=== PATIENT | male | born 1940 | race Caucasian/White ===

== ENCOUNTER → 2016-06-12 | Outpatient (CLI) | payer MEDICARE ==
[2016-06-12 10:53] LABS: Aty Lym Flag Marked; CH 30.4; CHCM 32.3; HCT 45.6 % (39.0-53.0); HDW 2.56; MCHC 32.8 g/dL (31.0-37.0); MCV 94.7 fL (80.0-100.0); MPO Flag Slight; Mean Platelet Volume 8.4; RBC 4.82 m/uL (4.30-5.90); RDW 13.9 % (11.5-15.5); WBC 5.8 k/uL (3.8-10.6); WBC (Perox) 5.63
[2016-06-12 11:22] LABS: Calcium 8.6 mg/dL (8.4-10.2); Magnesium 2.4 mg/dL (1.6-2.3); Phosphorous 3.7 mg/dL (2.5-4.5); Potassium 4.6 mmol/L (3.5-5.1); Uric Acid 6.6 mg/dL (3.5-8.5)
[2016-06-12 11:31] LABS: % Iron Saturation 26.2 % (20-50)
[2016-06-12 12:37] LABS: Appearance,Urine Clear (Clear); Bilirubin,Urine Negative (Negative); Glucose,Urine (UA) Negative (Negative); Ketones,Urine Negative (Negative); Leukocyte Esterase,Urine Small (Negative); Mucus,Urine Rare /hpf; Nitrite,Urine Negative (Negative); PH, Urine 5.5 (5.0-8.0); Particle Count 794; Protein,Urine Negative (Negative); RBC,Urine 3 /hpf (0-5); Specific Gravity,Urine 1.011 (1.001-1.035); Squamous Epithelial Cell,Urine <1 /hpf (0-4); UA Billing (MACRO vs. MICRO) MICRO; Urobilinogen,Urine <2.0 mg/dL (<2.0); WBC,Urine 19 /hpf (0-5)
[2016-06-12 14:44] LABS: Add Differential Manual Differential
[2016-06-12 14:46] LABS: Manual Review Performed; Nucleated Red Blood Cells 0 /100 WBC (0-0); Total Cells Counted 100
[2016-06-12 14:48] LABS: Toxic Granulation Present
== END | disposition home or self-care (01) ==
LOC: LABWHC1 10:15
PROVIDERS: ATTEND Internal Medicine Nephrology
DX: N18.4 Chronic kidney disease, stage 4 (severe) (principal); D64.9 Anemia, unspecified; E55.9 Vitamin D deficiency, unspecified; N25.81 Secondary hyperparathyroidism of renal origin; M10.9 Gout, unspecified; N39.0 Urinary tract infection, site not specified
CPT/HCPCS: 36415; 80048; 81001; 82306; 82728; 83540; 83550; 83735; 83970; 84100; 84550; 85025

== ENCOUNTER → 2016-09-19 | Outpatient (CLI) | payer MEDICARE ==
[2016-09-19 11:08] LABS: Appearance,Urine Clear (Clear); Bilirubin,Urine Negative (Negative); Glucose,Urine (UA) Negative (Negative); Ketones,Urine Negative (Negative); Leukocyte Esterase,Urine Small (Negative); Mucus,Urine Rare /hpf; Nitrite,Urine Negative (Negative); Particle Count 636; Protein,Urine Negative (Negative); RBC,Urine 1 /hpf (0-5); Specific Gravity,Urine 1.007 (1.001-1.035); UA Billing (MACRO vs. MICRO) MICRO; Urobilinogen,Urine <2.0 mg/dL (<2.0); WBC,Urine 8 /hpf (0-5)
[2016-09-19 11:09] LABS: Aty Lym Flag Marked; CH 30.7; CHCM 32.4; HCT 46.8 % (39.0-53.0); HDW 2.52; HGB 14.8 gm/dL (13.0-17.5); MCH 30.2 pg (25.0-35.0); MCHC 31.7 g/dL (31.0-37.0); MCV 95.3 fL (80.0-100.0); MPO Flag Slight; RBC 4.91 m/uL (4.30-5.90); RDW 14.6 % (11.5-15.5); WBC 5.5 k/uL (3.8-10.6); WBC (Perox) 5.29
[2016-09-19 11:19] LABS: Calcium 8.5 mg/dL (8.4-10.2); Magnesium 2.3 mg/dL (1.6-2.3); Phosphorous 4.3 mg/dL (2.5-4.5); Potassium 4.4 mmol/L (3.5-5.1); Uric Acid 6.8 mg/dL (3.5-8.5)
[2016-09-19 12:21] LABS: Add Differential Manual Differential
[2016-09-19 12:23] LABS: Manual Review Performed; Nucleated Red Blood Cells 0 /100 WBC (0-0); Total Cells Counted 100
[2016-09-19 12:24] LABS: RBC Morphology Normal
== END | disposition home or self-care (01) ==
LOC: LABWHC1 10:33
PROVIDERS: ATTEND Nurse Practitioner Family
DX: N25.81 Secondary hyperparathyroidism of renal origin (principal); N18.4 Chronic kidney disease, stage 4 (severe); N39.0 Urinary tract infection, site not specified; D64.9 Anemia, unspecified; M10.9 Gout, unspecified
CPT/HCPCS: 36415; 80048; 81001; 82306; 82728; 83540; 83550; 83735; 83970; 84100; 84550; 85025

== ENCOUNTER → 2016-09-23 | Outpatient (CLI) | payer MEDICARE ==
[2016-09-23 11:07] LABS: Calcium 8.5 mg/dL (8.4-10.2); Potassium 4.7 mmol/L (3.5-5.1)
== END | disposition home or self-care (01) ==
LOC: LABWHC1 09:26
PROVIDERS: ATTEND Nurse Practitioner Family
DX: N18.4 Chronic kidney disease, stage 4 (severe) (principal)
CPT/HCPCS: 36415; 80048

== ENCOUNTER → 2017-01-06 | Outpatient (CLI) | payer MEDICARE ==
[2017-01-06 08:05] LABS: Aty Lym Flag Marked; CH 30.7; CHCM 31.2; HCT 45.2 % (39.0-53.0); HDW 2.72; HGB 14.5 gm/dL (13.0-17.5); Hypochromasia Slight; MCH 31.7 pg (25.0-35.0); MCV 99.1 fL (80.0-100.0); MPO Flag Slight; Mean Platelet Volume 8.1; RBC 4.56 m/uL (4.30-5.90); RDW 14.7 % (11.5-15.5); WBC 5.8 k/uL (3.8-10.6); WBC (Perox) 5.85
[2017-01-06 08:21] LABS: Appearance,Urine Clear (Clear); Bacteria,Urine Rare /hpf; Bilirubin,Urine Negative (Negative); Glucose,Urine (UA) Negative (Negative); Ketones,Urine Negative (Negative); Leukocyte Esterase,Urine Moderate (Negative); Mucus,Urine Rare /hpf; Nitrite,Urine Negative (Negative); PH, Urine 5.5 (5.0-8.0); Particle Count 604; Protein,Urine Negative (Negative); RBC,Urine 7 /hpf (0-5); UA Billing (MACRO vs. MICRO) MICRO; Urobilinogen,Urine <2.0 mg/dL (<2.0); WBC,Urine 13 /hpf (0-5)
[2017-01-06 08:37] LABS: Calcium 8.4 mg/dL (8.4-10.2); Phosphorus 3.1 mg/dL (2.5-4.5); Potassium 4.5 mmol/L (3.5-5.1); Uric Acid 5.8 mg/dL (3.5-8.5)
[2017-01-06 08:38] LABS: Add Differential Manual Differential
[2017-01-06 08:39] LABS: Nucleated Red Blood Cells 0 /100 WBC (0-0); Total Cells Counted 100
[2017-01-06 15:06] LABS: Iron Saturation 31.84 (15.00-50.00)
== END | disposition home or self-care (01) ==
LOC: LABWHC1 07:11
PROVIDERS: ATTEND Nurse Practitioner Family
DX: N18.4 Chronic kidney disease, stage 4 (severe) (principal); D64.9 Anemia, unspecified; N25.81 Secondary hyperparathyroidism of renal origin; M10.9 Gout, unspecified; N39.0 Urinary tract infection, site not specified
CPT/HCPCS: 36415; 80048; 81001; 82306; 82728; 83540; 83550; 83735; 83970; 84100; 84550; 85025; 85610

== ENCOUNTER → 2017-04-28 | Outpatient (CLI) | payer MEDICARE ==
[2017-04-28 11:20] LABS: Appearance,Urine Clear (Clear); Bilirubin,Urine Negative (Negative); Blood,Urine Trace (Negative); Color,Urine Yellow; Glucose,Urine (UA) Negative (Negative); Ketones,Urine Negative (Negative); Leukocyte Esterase,Urine Small (Negative); Nitrite,Urine Negative (Negative); PH, Urine 5.5 (5.0-8.0); Protein,Urine Negative (Negative); RBC,Urine 3 /hpf (0-5); Specific Gravity,Urine 1.011 (1.001-1.035); Squamous Epithelial Cell,Urine 1 /hpf (0-4); Urobilinogen,Urine <2.0 mg/dL (<2.0); WBC,Urine 12 /hpf (0-5)
[2017-04-28 11:29] LABS: Albumin 3.5 g/dL (3.5-5.0); Calcium 8.6 mg/dL (8.4-10.2); Magnesium 2.4 mg/dL (1.6-2.3); Potassium 4.9 mmol/L (3.5-5.1); Uric Acid 6.5 mg/dL (3.5-8.5)
[2017-04-28 11:30] LABS: HCT 48.9 % (39.0-53.0); HGB 15.3 gm/dL (13.0-17.5); MCH 30.2 pg (25.0-35.0); MCHC 31.2 g/dL (31.0-37.0); MCV 96.7 fL (80.0-100.0); Platelet Count 127 k/uL (150-450); RBC 5.06 m/uL (4.30-5.90); RDW 13.6 % (11.5-15.5); WBC 5.3 k/uL (3.8-10.6)
[2017-04-28 12:07] LABS: Eosinophils # (M) 0.11 k/uL (0-0.7); Lymphocytes # (M) 0.85 k/uL (1.0-4.8); Monocytes # (M) 0.42 k/uL (0-1.0); Neutrophils # (M) 3.92 k/uL (1.3-7.7); Neutrophils % (M) 74 %; Nucleated Red Blood Cells 0 /100 WBC (0-0); Total Cells Counted 100
[2017-04-28 15:09] LABS: Iron Saturation 29.73 (15.00-50.00)
[2017-04-28 19:45] LABS: Parathyroid Hormone Intact 137.5 pg/mL (14.0-72.0)
== END | disposition home or self-care (01) ==
LOC: LABWHC1 10:46
PROVIDERS: ATTEND Internal Medicine Nephrology
DX: N39.0 Urinary tract infection, site not specified (principal); M10.9 Gout, unspecified; D64.9 Anemia, unspecified; N25.81 Secondary hyperparathyroidism of renal origin; N18.4 Chronic kidney disease, stage 4 (severe)
CPT/HCPCS: 36415; 80048; 81001; 82040; 82306; 82728; 83540; 83550; 83735; 83970; 84550; 85025

== ENCOUNTER → 2017-05-13 | Outpatient (CLI) | payer MEDICARE ==
[2017-05-13 09:44] LABS: Calcium 8.6 mg/dL (8.4-10.2); Potassium 4.5 mmol/L (3.5-5.1)
== END | disposition home or self-care (01) ==
LOC: LABWHC1 08:54
PROVIDERS: ATTEND Nurse Practitioner Family
DX: N18.4 Chronic kidney disease, stage 4 (severe) (principal)
CPT/HCPCS: 36415; 80048

== ENCOUNTER → 2017-07-24 | Outpatient (CLI) | payer MEDICARE ==
[2017-07-24 13:06] LABS: HGB 14.6 gm/dL (13.0-17.5); MCH 30.1 pg (25.0-35.0); MCHC 32.5 g/dL (31.0-37.0); MCV 92.4 fL (80.0-100.0); Mean Platelet Volume 8.2; Platelet Count 132 k/uL (150-450); RBC 4.87 m/uL (4.30-5.90); RDW 14.3 % (11.5-15.5); WBC 5.4 k/uL (3.8-10.6)
[2017-07-24 13:09] LABS: Albumin 3.5 g/dL (3.5-5.0); Calcium 8.6 mg/dL (8.4-10.2); Magnesium 2.2 mg/dL (1.6-2.3); Potassium 4.9 mmol/L (3.5-5.1); Uric Acid 6.3 mg/dL (3.5-8.5)
[2017-07-24 13:37] LABS: Appearance,Urine Clear (Clear); Bilirubin,Urine Negative (Negative); Blood,Urine Negative (Negative); Color,Urine Light Yellow; Glucose,Urine (UA) Negative (Negative); Hyaline Casts,Urine 3 /lpf (0-2); Ketones,Urine Negative (Negative); Leukocyte Esterase,Urine Trace (Negative); Mucus,Urine Rare /hpf; Nitrite,Urine Negative (Negative); Protein,Urine Negative (Negative); RBC,Urine 1 /hpf (0-5); Urobilinogen,Urine <2.0 mg/dL (<2.0); WBC,Urine 6 /hpf (0-5)
[2017-07-24 14:31] LABS: Eosinophils # (M) 0.11 k/uL (0-0.7); Lymphocytes # (M) 0.81 k/uL (1.0-4.8); Monocytes # (M) 0.59 k/uL (0-1.0); Neutrophils # (M) 3.89 k/uL (1.3-7.7); Neutrophils % (M) 72 %; Nucleated Red Blood Cells 0 /100 WBC (0-0); Total Cells Counted 100
[2017-07-24 14:32] LABS: Ovalocytes Present
[2017-07-24 18:42] LABS: Iron Saturation 28.28 (15.00-50.00)
[2017-07-24 20:47] LABS: Parathyroid Hormone Intact 128.9 pg/mL (14.0-72.0)
== END | disposition home or self-care (01) ==
LOC: LAB 11:54
PROVIDERS: ATTEND Nurse Practitioner Family
DX: N25.81 Secondary hyperparathyroidism of renal origin (principal); N18.4 Chronic kidney disease, stage 4 (severe); E55.9 Vitamin D deficiency, unspecified; N39.0 Urinary tract infection, site not specified
CPT/HCPCS: 36415; 80048; 81001; 82040; 82728; 83540; 83550; 83735; 83970; 84550; 85025

== ENCOUNTER → 2017-09-04 | Outpatient (CLI) | payer MEDICARE ==
--- NOTE | 2017-09-04 19:59 | ECHOF ---
Referral Reason:I50.9 Congestive Heart Failure MEASUREMENTS -------- HEIGHT: 180.3 cm WEIGHT: 106.6 kg BP: IVSd: 1.1 cm (0.6 - 1.1) LVIDd: 5.8 cm (3.9 - 5.3) LVPWd: 1.4 cm (0.6 - 1.1) IVSs: 1.3 cm LVIDs: 5.1 cm LVPWs: 0.9 cm LAESV Index (A-L): 32.28 ml/m MV E Jono: 1.25 m/s MV DecT: 198 ms MV A Jono: 1.55 m/s MV E/A Ratio: 0.81 AV maxP.95 mmHg AV meanP.98 mmHg RAP: 5.00 mmHg RVSP: 23.73 mmHg FINDINGS -------- Pacerwire seen in RV and RA. This was a technically difficult study with suboptimal views. The left ventricular size is normal. Left ventricular wall thickness is normal. There is severe g lobal hypokinesis of LV . Overall left ventricular systolic function is severely impaired with, an EF between 20 - 25 %. The right ventricle is normal in size and function. LA is midly dilated 29-33ml/m2. The right atrium is normal in size. Lumason used There is mild aortic valve sclerosis. Peak/mean gradient across the Aortic Valve is 9.95mmHg / 5.98 mmHg. Mild mitral annular calcification present. Mild mitral regurgitation is present. The peak and me an MV gradients are 5.50mmHg 2.10mmHg as measured by doppler. Mild tricuspid regurgitation present. The right ventricular systolic pressure, as measured by Doppl er, is 23.73mmHg. The pulmonic valve was not well visualized. There is no pulmonic regurgitation present. The aortic root size is normal. There is no pericardial effusion. CONCLUSIONS -------- 1. Pacerwire seen in RV and RA. 2. This was a technically difficult study with suboptimal views. 3. The left ventricular size is normal. 4. Left ventricular wall thickness is normal. 5. There is severe global hypokinesis of LV . 6. Overall left ventricular systolic function is severely impaired with, an EF between 20 - 25 %. 7. LA is midly dilated 29-33ml/m2. 8. Lumason used 9. There is mild aortic valve sclerosis. 10. Peak/mean gradient across the Aortic Valve is 9.95mmHg / 5.98mmHg. 11. Mild mitral annular calcification present. 12. Mild mitral regurgitation is present. 13. The peak and mean MV gradients are 5.50mmHg 2.10mmHg as measured by doppler. 14. Mild tricuspid regurgitation present. 15. The right ventricular systolic pressure, as measured by Doppler, is 23.73mmHg. 16. There is no pulmonic regurgitation present. 17. The aortic root size is normal. 18. There is no pericardial effusion. LOCOMOTIVE OPERATOR: Pricilla Fabian RDCS
== END | disposition home or self-care (01) ==
LOC: RADECHMAIN 08:23
PROVIDERS: ATTEND Family Medicine
DX: I08.1 Rheumatic disorders of both mitral and tricuspid valves (principal); Z95.0 Presence of cardiac pacemaker
CPT/HCPCS: C8929; Q9950; 93306

== ENCOUNTER → 2017-09-18 | Outpatient (CLI) | payer MEDICARE ==
[2017-09-18 12:08] LABS: Potassium 4.7 mmol/L (3.5-5.1)
[2017-09-18 12:11] LABS: INR 2.5 (<1.2); Prothrombin Time 22.6 sec (9.0-12.0)
== END | disposition home or self-care (01) ==
LOC: LABWHC1 11:23
PROVIDERS: ATTEND Family Medicine
DX: N18.6 End stage renal disease (principal); I42.9 Cardiomyopathy, unspecified
CPT/HCPCS: 36415; 80051; 82565; 83880; 84443; 84520; 85610

== ENCOUNTER → 2017-10-23 | Outpatient (CLI) | payer MEDICARE ==
--- NOTE | 2017-10-23 09:39 | US ---
EXAMINATION TYPE: US kidneys/renal and bladder DATE OF EXAM: 10/23/2017 COMPARISON: CT & US 2016 CLINICAL HISTORY: N18.4 Chronic Kidney Disease Stage 4. CKD stage 4 EXAM MEASUREMENTS: Right Kidney: 8.0 x 4.4 x 4.7 cm Left Kidney: 9.7 x 4.4 x 5.3 cm Difficult and limited study due to patient body habitus Right Kidney: small in size, cortical thinning. Diminished cortical medullary differentiation. Left Kidney: cortical thinning. Diminished cortical medullary differentiation. Bladder: not fully distended, appears wnl as seen Bilateral Jets seen: yes There is no evidence for hydronephrosis at this point in time. No nephrolithiasis is seen. No yancy s are identified. The urinary bladder is anechoic. Bilateral ureteral jets are seen. IMPRESSION: Radiographic sequela of medical renal disease as seen on the prior exam. No hydronephrosis or nephrol ithiasis.
[2017-10-23 10:41] LABS: Albumin 3.3 g/dL (3.5-5.0); Calcium 8.4 mg/dL (8.4-10.2); Magnesium 2.2 mg/dL (1.6-2.3); Potassium 4.5 mmol/L (3.5-5.1); Uric Acid 6.6 mg/dL (3.5-8.5)
[2017-10-23 10:50] LABS: Appearance,Urine Clear (Clear); Bilirubin,Urine Negative (Negative); Blood,Urine Trace (Negative); Color,Urine Yellow; Glucose,Urine (UA) Negative (Negative); HCT 44.8 % (39.0-53.0); HGB 14.4 gm/dL (13.0-17.5); Ketones,Urine Negative (Negative); Leukocyte Esterase,Urine Moderate (Negative); MCH 30.2 pg (25.0-35.0); MCHC 32.3 g/dL (31.0-37.0); MCV 93.5 fL (80.0-100.0); Mean Platelet Volume 8.2; Mucus,Urine Rare /hpf; Nitrite,Urine Negative (Negative); PH, Urine 5.5 (5.0-8.0); Platelet Count 127 k/uL (150-450); Protein,Urine Negative (Negative); RBC 4.79 m/uL (4.30-5.90); RBC,Urine 2 /hpf (0-5); Urobilinogen,Urine <2.0 mg/dL (<2.0); WBC 4.9 k/uL (3.8-10.6); WBC,Urine 14 /hpf (0-5)
[2017-10-23 12:02] LABS: Lymphocytes # (M) 0.54 k/uL (1.0-4.8); Monocytes # (M) 0.93 k/uL (0-1.0); Neutrophils # (M) 3.33 k/uL (1.3-7.7); Neutrophils % (M) 68 %; Nucleated Red Blood Cells 0 /100 WBC (0-0); Total Cells Counted 100
[2017-10-23 16:11] LABS: Parathyroid Hormone Intact 105.2 pg/mL (14.0-72.0)
[2017-10-23 17:01] LABS: Iron Saturation 28.24 (15.00-50.00)
== END | disposition home or self-care (01) ==
LOC: RADUSWWP 08:51
PROVIDERS: ATTEND Internal Medicine Nephrology
DX: N28.89 Other specified disorders of kidney and ureter (principal); N18.4 Chronic kidney disease, stage 4 (severe); D64.9 Anemia, unspecified; M10.9 Gout, unspecified; N39.0 Urinary tract infection, site not specified; N25.81 Secondary hyperparathyroidism of renal origin
CPT/HCPCS: 36415; 76770; 80048; 81001; 82040; 82728; 83540; 83550; 83735; 83970; 84550; 85025

== ENCOUNTER → 2018-02-05 | Outpatient (CLI) | payer MEDICARE ==
[2018-02-05 11:32] LABS: HGB 14.8 gm/dL (13.0-17.5); MCH 29.5 pg (25.0-35.0); MCHC 30.8 g/dL (31.0-37.0); MCV 95.7 fL (80.0-100.0); Mean Platelet Volume 7.5; Platelet Count 126 k/uL (150-450); RBC 5.01 m/uL (4.30-5.90); RDW 14.1 % (11.5-15.5)
[2018-02-05 11:51] LABS: Appearance,Urine Clear (Clear); Bilirubin,Urine Negative (Negative); Blood,Urine Trace (Negative); Color,Urine Yellow; Glucose,Urine (UA) Negative (Negative); Ketones,Urine Negative (Negative); Leukocyte Esterase,Urine Small (Negative); Mucus,Urine Rare /hpf; Nitrite,Urine Negative (Negative); PH, Urine 5.5 (5.0-8.0); Protein,Urine Negative (Negative); RBC,Urine 6 /hpf (0-5); Specific Gravity,Urine 1.013 (1.001-1.035); Squamous Epithelial Cell,Urine <1 /hpf (0-4); Urobilinogen,Urine <2.0 mg/dL (<2.0); WBC,Urine 8 /hpf (0-5)
[2018-02-05 12:11] LABS: Eosinophils # (M) 0.12 k/uL (0-0.7); Monocytes # (M) 0.96 k/uL (0-1.0); Neutrophils # (M) 3.72 k/uL (1.3-7.7); Neutrophils % (M) 62 %; Nucleated Red Blood Cells 0 /100 WBC (0-0); Total Cells Counted 100
[2018-02-05 17:17] LABS: Iron Saturation 31.1 (15.00-50.00)
[2018-02-05 17:27] LABS: Vitamin D 25 Hydroxy 48.7 ng/mL (30.0-100.0)
[2018-02-05 17:36] LABS: Albumin 3.7 g/dL (3.80-4.90); Anion Gap 9.3 mmol/L (4.00-12.00); Calcium 8.4 mg/dL (8.7-10.3); Carbon Dioxide 23.7 mmol/L (21.6-31.8); Magnesium 2.1 mg/dL (1.5-2.4); Phosphorus 2.6 mg/dL (2.4-5.1); Potassium 4.2 mmol/L (3.5-5.5); Uric Acid 6.6 mg/dL (3.7-8.7)
[2018-02-05 18:06] LABS: Parathyroid Hormone Intact 116.9 pg/mL (14.0-72.0)
== END ==
LOC: LABWHC1 10:48
PROVIDERS: ATTEND Internal Medicine Nephrology
DX: N25.81 Secondary hyperparathyroidism of renal origin (principal); N18.4 Chronic kidney disease, stage 4 (severe); D63.1 Anemia in chronic kidney disease; M10.9 Gout, unspecified; N39.0 Urinary tract infection, site not specified
CPT/HCPCS: 36415; 80048; 81001; 82040; 82306; 82728; 83540; 83550; 83735; 83970; 84100; 84550; 85025

== ENCOUNTER → 2018-03-26 | Outpatient (CLI) | payer MEDICARE ==
[2018-03-26 10:35] LABS: INR 2.9 (<1.2); Prothrombin Time 27.7 sec (9.0-12.0)
== END ==
LOC: LABWHC1 09:09
PROVIDERS: ATTEND Nurse Practitioner Adult Health
DX: I48.0 Paroxysmal atrial fibrillation (principal)
CPT/HCPCS: 36415; 85610

== ENCOUNTER → 2018-05-27 | Outpatient (CLI) | payer MEDICARE ==
[2018-05-27 10:45] LABS: HCT 47.5 % (39.0-53.0); HGB 14.6 gm/dL (13.0-17.5); Hypochromasia Slight; MCH 29.7 pg (25.0-35.0); MCHC 30.7 g/dL (31.0-37.0); MCV 96.7 fL (80.0-100.0); Platelet Count 132 k/uL (150-450); RBC 4.91 m/uL (4.30-5.90); RDW 14.3 % (11.5-15.5); WBC 5.5 k/uL (3.8-10.6)
[2018-05-27 16:37] LABS: LDL Cholesterol,Calculated 137.4 mg/dL (0.0-131.0); VLDL Calculation 23.6 mg/dL (5.00-40.00)
[2018-05-27 16:38] LABS: Albumin 3.5 g/dL (3.80-4.90); Albumin/Globulin Ratio 1.52 (1.60-3.17); Anion Gap 8.3 mmol/L (4.00-12.00); Calcium 8.8 mg/dL (8.7-10.3); Carbon Dioxide 25.7 mmol/L (21.6-31.8); Globulin 2.3 g/dL (1.6-3.3); Potassium 4.5 mmol/L (3.5-5.5); Total Bilirubin 0.6 mg/dL (0.2-1.2); Total Protein 5.8 g/dL (6.2-8.2)
[2018-05-27 16:50] LABS: Hemoglobin A1C 5.8 % (4.0-6.0)
[2018-05-27 17:45] LABS: Parathyroid Hormone Intact 82.2 pg/mL (14.0-72.0)
[2018-05-27 17:46] LABS: Vitamin D 25 Hydroxy 50.9 ng/mL (30.0-100.0)
== END ==
LOC: LABWHC1 09:52
PROVIDERS: ATTEND Family Medicine
DX: N18.4 Chronic kidney disease, stage 4 (severe) (principal); I50.20 Unspecified systolic (congestive) heart failure
CPT/HCPCS: 36415; 80053; 80061; 82306; 83036; 83880; 83970; 84443; 85027

== ENCOUNTER → 2018-06-03 | Outpatient (CLI) | payer MEDICARE ==
[2018-06-03 10:01] LABS: HCT 46.7 % (39.0-53.0); HGB 14.5 gm/dL (13.0-17.5); MCH 29.2 pg (25.0-35.0); MCHC 31.1 g/dL (31.0-37.0); MCV 94.1 fL (80.0-100.0); Mean Platelet Volume 7.8; Platelet Count 131 k/uL (150-450); RBC 4.96 m/uL (4.30-5.90); RDW 14.2 % (11.5-15.5); WBC 5.5 k/uL (3.8-10.6)
[2018-06-03 10:31] LABS: Amorphous Sediment,Urine Rare /hpf; Appearance,Urine Clear (Clear); Bilirubin,Urine Negative (Negative); Blood,Urine Negative (Negative); Color,Urine Yellow; Glucose,Urine (UA) Negative (Negative); Hyaline Casts,Urine 1 /lpf (0-2); Ketones,Urine Negative (Negative); Leukocyte Esterase,Urine Trace (Negative); Mucus,Urine Rare /hpf; Nitrite,Urine Negative (Negative); PH, Urine 5.5 (5.0-8.0); Protein,Urine Negative (Negative); Specific Gravity,Urine 1.011 (1.001-1.035); Squamous Epithelial Cell,Urine <1 /hpf (0-4); Urobilinogen,Urine <2.0 mg/dL (<2.0); WBC,Urine 9 /hpf (0-5)
[2018-06-03 11:57] LABS: Band Neutrophils % 1 %; Basophils # (M) 0.06 k/uL (0-0.2); Eosinophils # (M) 0.06 k/uL (0-0.7); Lymphocytes # (M) 0.55 k/uL (1.0-4.8); Monocytes # (M) 0.72 k/uL (0-1.0); Neutrophils % (M) 74 %; Nucleated Red Blood Cells 0 /100 WBC (0-0); Poikilocytosis (M) Present; Total Cells Counted 100
[2018-06-03 16:18] LABS: Albumin 3.6 g/dL (3.80-4.90); Anion Gap 7.4 mmol/L (4.00-12.00); Calcium 8.6 mg/dL (8.7-10.3); Carbon Dioxide 26.6 mmol/L (21.6-31.8); Phosphorus 2.8 mg/dL (2.4-5.1); Uric Acid 8.1 mg/dL (3.7-8.7)
[2018-06-03 16:19] LABS: Magnesium 2.1 mg/dL (1.5-2.4)
[2018-06-03 16:25] LABS: Parathyroid Hormone Intact 57.7 pg/mL (14.0-72.0)
[2018-06-03 16:54] LABS: Iron Saturation 28.36 (15.00-50.00)
[2018-06-03 17:03] LABS: Creatinine,Urine Random 111.9 mg/dL
[2018-06-03 18:41] LABS: Total Protein,Urine Random 14.9 mg/dL (0.0-13.5)
== END | disposition home or self-care (01) ==
LOC: LABWHC1 09:19
PROVIDERS: ATTEND Internal Medicine Nephrology
DX: N18.4 Chronic kidney disease, stage 4 (severe) (principal); D63.1 Anemia in chronic kidney disease; E21.3 Hyperparathyroidism, unspecified; R80.9 Proteinuria, unspecified; N25.81 Secondary hyperparathyroidism of renal origin; M10.9 Gout, unspecified; N39.0 Urinary tract infection, site not specified
CPT/HCPCS: 36415; 80048; 81001; 82040; 82570; 82728; 83540; 83550; 83735; 83970; 84100; 84156; 84550; 85025

== ENCOUNTER → 2018-10-06 | Outpatient (CLI) | payer MEDICARE ==
[2018-10-06 09:19] LABS: INR 1.8 (<1.2); Prothrombin Time 17.6 sec (9.0-12.0)
== END | disposition home or self-care (01) ==
LOC: LABWHC1 07:54
PROVIDERS: ATTEND Internal Medicine Cardiovascular Disease
DX: I48.0 Paroxysmal atrial fibrillation (principal)
CPT/HCPCS: 36415; 85610

== ENCOUNTER → 2018-10-31 | Outpatient (CLI) | payer MEDICARE ==
[2018-10-31 10:02] LABS: Appearance,Urine Clear (Clear); Bilirubin,Urine Negative (Negative); Blood,Urine Negative (Negative); Color,Urine Yellow; Glucose,Urine (UA) Negative (Negative); Hyaline Casts,Urine 3 /lpf (0-2); Ketones,Urine Negative (Negative); Leukocyte Esterase,Urine Small (Negative); Mucus,Urine Rare /hpf; Nitrite,Urine Negative (Negative); PH, Urine 5.5 (5.0-8.0); Protein,Urine Negative (Negative); RBC,Urine 1 /hpf (0-5); Specific Gravity,Urine 1.014 (1.001-1.035); Urobilinogen,Urine <2.0 mg/dL (<2.0); WBC,Urine 9 /hpf (0-5)
[2018-10-31 11:43] LABS: HGB 14.5 gm/dL (13.0-17.5); MCHC 31.5 g/dL (31.0-37.0); MCV 95.2 fL (80.0-100.0); Mean Platelet Volume 9.1; Platelet Count 136 k/uL (150-450); RBC 4.83 m/uL (4.30-5.90); RDW 15.7 % (11.5-15.5); WBC 5.5 k/uL (3.8-10.6)
[2018-10-31 13:47] LABS: Eosinophils # (M) 0.17 k/uL (0-0.7); Lymphocytes # (M) 0.83 k/uL (1.0-4.8); Monocytes # (M) 0.94 k/uL (0-1.0); Neutrophils % (M) 65 %; Nucleated Red Blood Cells 0 /100 WBC (0-0); Total Cells Counted 100
[2018-10-31 16:28] LABS: Iron Saturation 32.81 (15.00-50.00)
[2018-10-31 17:10] LABS: African American GFR (CKD) 22.2 (60.0-200.0); Albumin 3.5 g/dL (3.80-4.90); Anion Gap 8.6 mmol/L (4.00-12.00); BUN/Creat Ratio 18.33 Ratio (12.00-20.00); Calcium 8.6 mg/dL (8.7-10.3); Carbon Dioxide 26.4 mmol/L (21.6-31.8); Creatinine,Urine Random 119.1 mg/dL; Phosphorus 2.5 mg/dL (2.4-5.1); Uric Acid 7.2 mg/dL (3.7-8.7)
[2018-10-31 17:39] LABS: Total Protein,Urine Random 12.4 mg/dL (0.0-13.5)
== END | disposition home or self-care (01) ==
LOC: LABWHC1 08:21
PROVIDERS: ATTEND Internal Medicine Nephrology
DX: N18.4 Chronic kidney disease, stage 4 (severe) (principal); D63.1 Anemia in chronic kidney disease; E83.31 Familial hypophosphatemia; N25.81 Secondary hyperparathyroidism of renal origin; M10.9 Gout, unspecified; E55.9 Vitamin D deficiency, unspecified
CPT/HCPCS: 36415; 80048; 81001; 82040; 82570; 82728; 83540; 83550; 83735; 83970; 84100; 84156; 84550; 85025

== ENCOUNTER → 2019-02-02 | Outpatient (CLI) | payer MEDICARE ==
[2019-02-02 09:45] LABS: Appearance,Urine Clear (Clear); Bilirubin,Urine Negative (Negative); Blood,Urine Negative (Negative); Color,Urine Yellow; Glucose,Urine (UA) Negative (Negative); Ketones,Urine Negative (Negative); Leukocyte Esterase,Urine Small (Negative); Mucus,Urine Rare /hpf; Nitrite,Urine Negative (Negative); PH, Urine 5.5 (5.0-8.0); Protein,Urine Negative (Negative); Specific Gravity,Urine 1.014 (1.001-1.035); Squamous Epithelial Cell,Urine <1 /hpf (0-4); Urobilinogen,Urine <2.0 mg/dL (<2.0); WBC,Urine 6 /hpf (0-5)
[2019-02-02 10:26] LABS: HCT 44.6 % (39.0-53.0); HGB 14.2 gm/dL (13.0-17.5); MCH 30.4 pg (25.0-35.0); MCHC 31.9 g/dL (31.0-37.0); MCV 95.2 fL (80.0-100.0); Mean Platelet Volume 7.2; Platelet Count 131 k/uL (150-450); RBC 4.69 m/uL (4.30-5.90); RDW 13.8 % (11.5-15.5); WBC 6.1 k/uL (3.8-10.6)
[2019-02-02 12:12] LABS: Eosinophils # (M) 0.12 k/uL (0-0.7); Lymphocytes # (M) 1.22 k/uL (1.0-4.8); Monocytes # (M) 0.92 k/uL (0-1.0); Neutrophils % (M) 63 %; Nucleated Red Blood Cells 0 /100 WBC (0-0); Total Cells Counted 100
[2019-02-02 17:02] LABS: % Iron Saturation 28.46 (15.00-50.00); African American GFR (CKD) 20.5 (60.0-200.0); Albumin 3.6 g/dL (3.80-4.90); Anion Gap 8.5 mmol/L (4.00-12.00); BUN/Creat Ratio 19.38 Ratio (12.00-20.00); Calcium 8.6 mg/dL (8.7-10.3); Carbon Dioxide 24.5 mmol/L (21.6-31.8); Phosphorus 2.9 mg/dL (2.4-5.1); Potassium 4.1 mmol/L (3.5-5.5); Uric Acid 6.8 mg/dL (3.7-8.7)
[2019-02-02 17:10] LABS: Ferritin 165.6 ng/mL (22.0-322.0)
[2019-02-02 19:35] LABS: Creatinine,Urine Random 120.2 mg/dL; Total Protein,Urine Random 10.7 mg/dL (0.0-13.5)
== END | disposition home or self-care (01) ==
LOC: LABWHC1 08:18
PROVIDERS: ATTEND Internal Medicine Nephrology
DX: N39.0 Urinary tract infection, site not specified (principal); M10.9 Gout, unspecified; D63.1 Anemia in chronic kidney disease; N18.4 Chronic kidney disease, stage 4 (severe); N25.81 Secondary hyperparathyroidism of renal origin; R80.9 Proteinuria, unspecified
CPT/HCPCS: 36415; 80048; 81001; 82040; 82570; 82728; 83540; 83550; 83735; 83970; 84100; 84156; 84550; 85025

== ENCOUNTER 2019-11-18 15:18 | Observation (INO) | payer MEDICARE ==
[2019-11-18 17:54] LABS: INR 2.5 (<1.2); Prothrombin Time 24.4 sec (9.0-12.0)
--- NOTE | 2019-11-18 17:56 | XR ---
EXAMINATION TYPE: XR chest 2V DATE OF EXAM: 11/18/2019 COMPARISON: NONE HISTORY: Chest pain TECHNIQUE: 2 views FINDINGS: There is no heart failure nor confluent pneumonic infiltrate. Costophrenic angles are clear . There is right axillary pacemaker. Thoracic aorta is atheromatous. There are sternal wires. IMPRESSION: No active cardiopulmonary disease. There is clearing of the pleural fluid at the lateral lung bases compared to old exam.
[2019-11-18 17:58] LABS: Albumin 3.6 g/dL (3.5-5.0); Calcium 8.7 mg/dL (8.4-10.2); Potassium 4.4 mmol/L (3.5-5.1); Total Bilirubin 0.6 mg/dL (0.2-1.3); Total Protein 6.5 g/dL (6.3-8.2)
[2019-11-18 18:01] LABS: HGB 15.2 gm/dL (13.0-17.5); Hypochromasia Slight; MCH 29.6 pg (25.0-35.0); MCHC 30.9 g/dL (31.0-37.0); MCV 95.7 fL (80.0-100.0); Mean Platelet Volume 8.5; Platelet Count 139 k/uL (150-450); RBC 5.12 m/uL (4.30-5.90); WBC 6.2 k/uL (3.8-10.6)
[2019-11-18 18:36] LABS: Lymphocytes # (M) 1.05 k/uL (1.0-4.8); Monocytes # (M) 0.37 k/uL (0-1.0); Neutrophils # (M) 4.77 k/uL (1.3-7.7); Neutrophils % (M) 77 %; Nucleated Red Blood Cells 0 /100 WBC (0-0); Total Cells Counted 100
[2019-11-18] MEDS ORDERED: WARFARIN 2.5 MG TAB PO SCH (19:00)
[2019-11-18 20:41] VITALS: RESP 18
[2019-11-18 22:03] LABS: Appearance,Urine Clear (Clear); Bilirubin,Urine Negative (Negative); Blood,Urine Negative (Negative); Color,Urine Light Yellow; Glucose,Urine (UA) Negative (Negative); Hyaline Casts,Urine 7 /lpf (0-2); Ketones,Urine Negative (Negative); Leukocyte Esterase,Urine Trace (Negative); Mucus,Urine Rare /hpf; Nitrite,Urine Negative (Negative); Protein,Urine Negative (Negative); RBC,Urine 1 /hpf (0-5); Urobilinogen,Urine <2.0 mg/dL (<2.0); WBC,Urine 3 /hpf (0-5)
[2019-11-18] MEDS: FLECAINIDE 50 MG TAB PO SCH (23:42)
[2019-11-19] MEDS: FLECAINIDE 50 MG TAB PO SCH (08:30)
[2019-11-19] MEDS ORDERED: SACUBITRIL/VALSARTAN 24 MG-26 MG TABLET PO SCH (09:00)
[2019-11-19] MEDS ORDERED: METOPROLOL SUCCINATE (ER) 50 MG TAB.ER.24H PO SCH (09:00)
[2019-11-19] MEDS ORDERED: FUROSEMIDE 40 MG TAB PO SCH (09:00)
[2019-11-19] MEDS ORDERED: allopurinoL 100 MG TAB PO SCH ×2 (09:00)
[2019-11-19] MEDS ORDERED: METOPROLOL SUCCINATE (ER) 25 MG TAB.ER.24H PO SCH (09:00)
[2019-11-19] MEDS ORDERED: POTASSIUM CHLORIDE ER 20 MEQ TAB.ER PO SCH (09:00)
[2019-11-19] MEDS ORDERED: FEBUXOSTAT 40 MG PO SCH (09:00)
[2019-11-19] MEDS ORDERED: FUROSEMIDE 20 MG TAB PO SCH (09:00)
[2019-11-19 09:08] LABS: INR 2.1 (<1.2); Prothrombin Time 20.7 sec (9.0-12.0)
[2019-11-19 09:09] LABS: Albumin 3.1 g/dL (3.5-5.0); Calcium 8.5 mg/dL (8.4-10.2); Total Bilirubin 0.9 mg/dL (0.2-1.3); Total Protein 5.9 g/dL (6.3-8.2)
[2019-11-19 09:33] LABS: HCT 44.2 % (39.0-53.0); HGB 13.9 gm/dL (13.0-17.5); MCH 29.8 pg (25.0-35.0); MCHC 31.5 g/dL (31.0-37.0); MCV 94.7 fL (80.0-100.0); Mean Platelet Volume 8.2; Platelet Count 125 k/uL (150-450); RBC 4.67 m/uL (4.30-5.90); RDW 14.1 % (11.5-15.5); WBC 5.5 k/uL (3.8-10.6)
[2019-11-19 10:34] LABS: Eosinophils # (M) 0.17 k/uL (0-0.7); Lymphocytes # (M) 0.77 k/uL (1.0-4.8); Monocytes # (M) 0.88 k/uL (0-1.0); Neutrophils # (M) 3.69 k/uL (1.3-7.7); Neutrophils % (M) 67 %; Nucleated Red Blood Cells 0 /100 WBC (0-0); Total Cells Counted 100
[2019-11-19 11:43] VITALS: BP 115/80; PULSE 78; TEMP 97.5
--- NOTE | 2019-11-19 11:57 | P.CRDCN ---
History of Present Illness History of present illness: HISTORY OF PRESENTING ILLNESS This is a pleasant 79-year-old male past medical history significant for chronic systolic heart failure, valvular heart disease status post aortic valve replace ment, sick sinus syndrome status post permanent pacemaker implantation [employer], paroxysmal atrial fibrillation, hypertension, dyslipidemia, chronic kidney disease with baseline creatinine around 3, nonischemic cardiomyopathy and CVA. He follows in the office with Dr. Ashby. We have been asked to see in consultation for palpitations. He was sent to the hospital as a direct admit by his primary care physician secondary to palpitations. He recently saw Dr. Ashby in the office who took over for another physician. His flecainide was discontinued secondary to poor LV systolic function and risk of sudden and exacerbation of CHF. He had been off of his flecanide for approximately 3 days and started feeling his palpitations. He states was a fluttering sensation in his chest that was occurring rather regularly around the clock. He had no chest pain, shortness of breath dizziness associated with his palpitations. Most recent echocardiogram revealed severe global LV hypokinesia with ejection fraction 20-25%, mild aortic stenosis with a mean gradient of 5 mmHg, mild mitral regurgitation with a mean gradient across the mitral valve of 2 mmHg. He has declined an AICD upgrade in the past. Telemetry tracings reveal persistent paced rhythm. DIAGNOSTICS Chest xray negative for any acute cardiopulmonary process with clearing of the pleural fluid in the left lateral lung compared to old exam. Laboratory reviewed, WBC 5.5, hemoglobin 13.9, platelets 125, INR 2.1, sodium 143, potassium 4.0, creatinine on admission 3. 3 repeat today 3.01, cardiac enzymes negative 1. Current cardiac medications include Coumadin, entresto 24/26 mg twice a day, Toprol 25 mg daily, Lasix 20 mg twice a day. REVIEW OF SYSTEMS At the time of my exam: CONSTITUTIONAL: Denies fever or chills. CARDIOVASCULAR: Denies chest pain, shortness of breath, orthopnea, PND or palpitations. RESPIRATORY: Denies cough. GASTROINTESTINAL: Denies abdominal pain, diarrhea, constipation, nausea or vomiting. MUSCULOSKELETAL: Denies myalgias. NEUROLOGIC: Denies numbness, tingling or weakness. ENDOCRINE: Denies fatigue, weight change, polydipsia or polyurina. GENITOURINARY: Denies burning, hematuria or urgency with micturation. HEMATOLOGIC: Denies history of anemia or bleeding. PHYSICAL EXAMINATION Blood pressure 125/79 heart rate 60 afebrile and maintaining oxygen saturation on room air. CONSTITUTIONAL: No apparent distress. HEENT: Head is normocephalic. Pupils are equal, round. Sclerae anicteric. Mucous membranes of the mouth are moist. No JVD. No carotid bruit. CHEST EXAMINATION: Lungs are clear to auscultation. No chest wall tenderness is noted on palpation or with deep breathing. HEART EXAMINATION: Regular rate and rhythm. S1, S2 heard. Systolic ejection murmur at the base, no gallops or rub. ABDOMEN: Soft, nontender. Positive bowel sounds. EXTREMITIES: 2+ peripheral pulses, trace bilateral lower extremity non-pitting edema and no calf tenderness. NEUROLOGIC EXAMINATION: Patient is awake, alert and oriented x3. ASSESSMENT Palpitations Paroxysmal atrial fibrillation on long-term anticoagulation Chronic systolic heart failure clinically euvolemic Nonischemic cardiomyopathy Sick sinus syndrome status post permanent pacemaker implantation Hypertension Dyslipidemia Chronic kidney disease PLAN Interrogate pacemaker. Discontinue flecainide acetate as this is a poor choice of a drug and a patient with heart failure. Further recommendations to follow based upon clinical course. Thank you kindly for this consultation. Nurse Practitioner note has been reviewed, I agree with a documented findings and plan of care. Patient was seen and examined. Past Medical History Past Medical History: Atrial Fibrillation, Cancer, Heart Failure, CVA/TIA, Osteoarthritis (OA), Renal Disease Additional Past Medical History / Comment(s): peripheral vision loss from CVA, edema bilateral lower legs, chronic kidney disease, hx colon ca, , DIVERTICULOSIS, gout, shingles on face, odonnell disease History of Any Multi-Drug Resistant Organisms: None Reported Past Surgical History: Ablation, Bowel Resection, Cardiac Ablation, Cardiac Valve Replacement, Heart Catheterization, Hernia Repair, Orthopedic Surgery, Pacemaker Additional Past Surgical History / Comment(s): cardiac ablation X 2, DARIAN, PAST CHEST TUBE, bilateral CATARACTS , RT ANKLE BROKEN HAS PINS IN PLACE, LT HAND FINGERS TIPS CUT OFF WHEN HE FELL INTO [employer] OF A [employer], pyloric surgery as infant, L inguinal hernia repair,hemodialysis/removed, cardiac valve repaired, cardiac valve replaced Past Anesthesia/Blood Transfusion Reactions: Previous Problems w/ Anesthesia, Postoperative Nausea & Vomiting (PONV) Additional Past Anesthesia/Blood Transfusion Reaction / Comment(s): woke up during a couple surgeries Type of Cardiac Device: Permanent Pacemaker Device Placement Date:: 2011 Past Psychological History: No Psychological Hx Reported Additional Psychological History / Comment(s): . Smoking Status: Former smoker Past Alcohol Use History: None Reported Additional Past Alcohol Use History / Comment(s): quit smoking 10 yrs ago, smoked since age 15 yrs- cigars Past Drug Use History: None Reported - Past Family History Father Family Medical History: Cancer Additional Family Medical History / Comment(s): . Mother Family Medical History: Dementia Additional Family Medical History / Comment(s): AT AGE 92- Medications and Allergies Home Medications Medication Instructions Recorded Confirmed Type Famotidine 20 mg PO 11/20/13 11/18/19 History Warfarin [Coumadin] 2.5 mg PO [id number]@209911/20/13 11/18/19 History Flecainide Acetate [Tambocor] 100 mg PO BID 11/09/15 11/18/19 History Cholecalciferol [Vitamin D3 (25 2,000 unit PO 11/18/19 11/18/19 History Mcg = 1000 Iu)] Febuxostat [Uloric] 40 mg PO DAILY 11/18/19 11/18/19 History Furosemide [Lasix] 20 mg PO BID@0900,1600 11/18/19 11/18/19 History Metoprolol Succinate (ER) [Toprol 25 mg PO DAILY 11/18/19 11/18/19 History Xl] Mycophenolate Mofetil [Cellcept] 250 mg PO DAILY 11/18/19 11/18/19 History Sacubitril/Valsartan [Entresto 24 1 tab PO BID 11/18/19 11/18/19 History mg-26 mg Tablet] Tamsulosin [Flomax] 0.4 mg PO 11/18/19 11/18/19 History Warfarin [Coumadin] 5 mg PO SUTUSA@209911/18/19 11/18/19 History calcitrioL [Calcitriol] 0.25 mcg PO TUTHSA@209911/18/19 11/18/19 History Allergies Allergy/AdvReac Type Severity Reaction Status Date / Time amoxicillin trihydrate AdvReac Nausea Verified 11/18/19 17:06 [From Augmentin] budesonide [From Symbicort] AdvReac tachycardia Verified 11/18/19 17:06 Corticosteroids AdvReac stroke Verified 11/18/19 17:07 (Glucocorticoids) like reaction formoterol fumarate AdvReac tachycardia Verified 11/18/19 17:06 [From Symbicort] gabapentin AdvReac Hallucinati Verified 11/18/19 17:06 ons hydrocodone AdvReac Hallucinati Verified 11/18/19 17:06 ons Iodinated Contrast Media AdvReac kidney Verified 11/18/19 17:06 [Iodinated Contrast Media - failure IV Dye] montelukast sodium AdvReac Unknown Verified 11/18/19 17:06 [From Singulair] potassium clavulanate AdvReac Nausea Verified 11/18/19 17:06 [From Augmentin] tape Allergy rash-states Uncoded 11/18/19 17:07 "ok to use paper tape" steroids AdvReac Severe stroke Uncoded 11/18/19 17:07 like reaction Physical Exam Vitals: Vital Signs Temp Pulse Resp BP Pulse Ox 11/19/19 04:25 97.7 F 60 18 125/79 94 L 11/19/19 03:12 89 18 129/84 95 11/18/19 20:40 97.7 F 62 18 119/75 95 11/18/19 16:11 97.4 F L 81 20 135/82 97 Intake and Output 11/18/19 11/19/19 11/19/19 22:59 06:59 14:59 Intake Total 480 240 Output Total 300 300 Balance 180 -60 Intake: Oral 480 240 Output: Urine 300 300 Other: Voiding Method Toilet Toilet Urinal Urinal # Voids 1 1 1 Weight 115.666 kg Results 11/19/19 08:20 11/19/19 08:20 Cardiac Enzymes 11/18/19 11/18/19 11/19/19 Range/Units 17:30 17:30 08:20 AST 26 23 (17-59) U/L Troponin I <0.012 (0.000-0.034) ng/mL Coagulation 11/18/19 11/19/19 Range/Units 17:30 08:20 PT 24.4 H 20.7 H (9.0-12.0) sec CBC 11/18/19 11/19/19 Range/Units 17:30 08:20 WBC 6.2 5.5 (3.8-10.6) k/uL RBC 5.12 4.67 (4.30-5.90) m/uL Hgb 15.2 13.9 (13.0-17.5) gm/dL Hct 49.0 44.2 (39.0-53.0) % Plt Count 139 L 125 L (150-450) k/uL Comprehensive Metabolic Panel 11/18/19 11/19/19 Range/Units 17:30 08:20 Sodium 142 143 (137-145) mmol/L Potassium 4.4 4.0 (3.5-5.1) mmol/L Chloride 110 H 112 H (98-107) mmol/L Carbon Dioxide 25 24 (22-30) mmol/L BUN 60 H 58 H (9-20) mg/dL Creatinine 3.30 H 3.01 H (0.66-1.25) mg/dL Glucose 109 H 87 (74-99) mg/dL Calcium 8.7 8.5 (8.4-10.2) mg/dL AST 26 23 (17-59) U/L ALT 14 12 (4-49) U/L Alkaline Phosphatase 80 73 (38-126) U/L Total Protein 6.5 5.9 L (6.3-8.2) g/dL Albumin 3.6 3.1 L (3.5-5.0) g/dL Current Medications Generic Name Dose Route Start Last Admin Trade Name Freq PRN Reason Stop Dose Admin Allopurinol 200 mg 11/19/19 09:00 11/19/19 08:30 Zyloprim PO 200 mg DAILY KAMERON Administration Calcitriol 0.25 mcg 11/20/19 21:00 Rocaltrol PO TUTHSA@2100 [facility] Cholecalciferol 2,000 unit 11/19/19 21:00 Vitamin D3 (25 Mcg = 1000 Iu) PO HS KAMERON Famotidine 20 mg 11/19/19 21:00 Pepcid PO HS KAMERON Furosemide 20 mg 11/19/19 09:00 11/19/19 08:42 Lasix PO 20 mg DAILY KAMERON Administration Metoprolol Succinate 25 mg 11/19/19 09:00 11/19/19 08:31 Toprol Xl PO 25 mg DAILY KAMERON Administration Miscellaneous Information 0 each 11/18/19 18:35 Coumadin Per Pharmacy MISCELLANE DIRECTED PRN ANTICOAG Mycophenolate Mofetil 250 mg 11/19/19 09:00 11/19/19 08:31 Cellcept PO 250 mg DAILY [facility] Administration Potassium Chloride 20 meq 11/19/19 09:00 11/19/19 08:30 K-Dur 20 PO Not Given DAILY [facility] Sacubitril/Valsartan 1 each 11/19/19 09:00 11/19/19 08:31 Entresto 24 Mg-26 Mg Tablet PO 1 each BID [facility] Administration Tamsulosin HCl 0.4 mg 11/19/19 21:00 Flomax PO HS [facility] Warfarin Sodium 5 mg 11/20/19 18:00 Coumadin PO SuTuSa@1800 [facility] Protocol Warfarin Sodium 2.5 mg 11/18/19 19:00 11/18/19 19:14 Coumadin PO 2.5 mg MoWeThFr@1800 [facility] Administration Protocol Intake and Output 11/18/19 11/19/19 11/19/19 22:59 06:59 14:59 Intake Total 480 240 Output Total 300 300 Balance 180 -60 Intake: Oral 480 240 Output: Urine 300 300 Other: Voiding Method Toilet Toilet Urinal Urinal # Voids 1 1 1 Weight 115.666 kg 11/19/19 08:20 11/19/19 08:20
--- NOTE | 2019-11-19 13:59 | HP ---
HISTORY AND PHYSICAL A 79-year-old white male who was admitted after having palpitations, shortness of breath and weakness and near syncope, status post on Cardiology stopping his flecainide 4 days ago. Patient immediately started having palpitations and shortness of breath and near syncope at which time he came to my office and he had restarted his flecainide against cardiac advice 2 days after he stopped it. History of systolic CHF and valve replacement down in [place], permanent pacemaker, paroxysmal atrial fibrillation, CVA, hypertension. He has fluttering sensation in his chest whenever he walks and ambulates, shortness of breath and dizziness. Recent echo showed ejection fraction 20% to 25%. Telemetry shows paced rhythm. 14 POINT REVIEW OF SYSTEMS: As mentioned, otherwise is negative. MEDS: See list. REVIEW OF SYSTEMS: As mentioned above. Blood pressure is 120s/70s, heart rate in the 60s, maintaining on room air. HEAD: Normocephalic, atraumatic. LUNGS: Clear. HEART: S1, S2. ABDOMEN: Soft. EXTREMITIES: 2 to 3+ edema. NEUROLOGIC: Alert and orient x3. ASSESSMENT: Paroxysmal atrial fibrillation, on long-term anticoagulation, palpitations and syncope, nonischemic cardiomyopathy, chronic systolic heart failure, sick sinus syndrome, status post pacemaker, hypertension, dyslipidemia, chronic kidney disease, status post valve replacement. May interrogate his pacemaker. They stopped his Flecainide. As this is a poor choice of drug with heart failure. Await for Cardiology to clear him for discharge. Otherwise, continue to rehydrate him. His INR is 2.1. White count 5.5, hemoglobin 13. His BUN is 58, creatinine is 3.01, GFR since he got rehydrated went up to 17 up to 19. Await for Cardiology to clear him for discharge. MMODL / IJN: [id number] /
[2019-11-19] MEDS ORDERED: FAMOTIDINE 20 MG TAB PO SCH (21:00)
[2019-11-19] MEDS ORDERED: CHOLECALCIFEROL 1,000 UNIT TAB PO SCH (21:00)
[2019-11-19] MEDS ORDERED: TAMSULOSIN 0.4 MG CAP.ER.24H PO SCH (21:00)
[2019-11-20] MEDS ORDERED: FUROSEMIDE 80 MG TAB PO SCH (09:00)
[2019-11-20] MEDS ORDERED: WARFARIN 5 MG TAB PO SCH (18:00)
--- NOTE | 2019-11-22 15:29 | CDI ---
Documentation Clarification Form Date: 11/22/19 From: Radha Broderick CCS Phone: If you have a question about this query, please contact Daniela Jara, [employer] at [phone] between 8am and 5pm. Admit Date: 11/18/19 Discharge Date:11/19/19 Patient Name: Bronson Luna Visit Number: [id number] ATTENTION: The Clinical Documentation Specialists (CDI) and [facility] Coding Staff appreciate your assistance in clarifying documentation. Please respond to the clarification below the line at the bottom and electronically sign. The CDI & [facility] Coding staff will review the response and follow-up if needed. Please note: Queries are made part of the Legal Health Record. If you have any questions, please contact the author of this message via ITS. Dear Dr. Nolasco, CKD is documented in the H&P, Consult. History/Risk Factors: HTN, CHF, CMP, AFIB Clinical Indicators: Current BUN: 60, 58 CR: 3.3, 3.01 GFR: 17, 19 Treatment: Monitor In order to capture the severity of condition, please clarify the stage of the CKD, if known: CKD Stage 1 (GFR > 90) CKD Stage 2 (GFR 60-89) CKD Stage 3 (GFR 30-59) CKD Stage 4 (GFR 15-29) CKD Stage 5 (GFR <15) ESRD Other, please specify Unable to determine MTDD
== END 2019-11-19 17:13 | disposition home or self-care (01) ==
LOC: INTOOBSV 15:47 → 5NMEDONC 15:47 → UNDODISIN 11-19 17:13
PROVIDERS: ADMIT Family Medicine; ATTEND Family Medicine
DX: I48.0 Paroxysmal atrial fibrillation (principal); Z79.01 Long term (current) use of anticoagulants; I13.0 Hypertensive heart and chronic kidney disease with heart failure and stage 1 through stage 4 chronic kidney disease, or unspecified chronic kidney disease; N18.9 Chronic kidney disease, unspecified; I50.22 Chronic systolic (congestive) heart failure; Z95.2 Presence of prosthetic heart valve; Z95.0 Presence of cardiac pacemaker; Z86.73 Personal history of transient ischemic attack (TIA), and cerebral infarction without residual deficits; I42.8 Other cardiomyopathies; E78.5 Hyperlipidemia, unspecified; I49.5 Sick sinus syndrome; M19.90 Unspecified osteoarthritis, unspecified site; H54.7 Unspecified visual loss; R60.0 Localized edema; Z85.038 Personal history of other malignant neoplasm of large intestine; M10.9 Gout, unspecified; Z86.19 Personal history of other infectious and parasitic diseases; Z90.49 Acquired absence of other specified parts of digestive tract; Z98.42 Cataract extraction status, left eye; Z98.41 Cataract extraction status, right eye; Z98.890 Other specified postprocedural states; Z89.022 Acquired absence of left finger(s); Z87.891 Personal history of nicotine dependence; Z80.9 Family history of malignant neoplasm, unspecified; Z81.8 Family history of other mental and behavioral disorders; Z79.899 Other long term (current) drug therapy; Z91.041 Radiographic dye allergy status; Z88.5 Allergy status to narcotic agent; Z88.0 Allergy status to penicillin; Z88.8 Allergy status to other drugs, medicaments and biological substances; Z91.09 Other allergy status, other than to drugs and biological substances
CPT/HCPCS: 93005; 80053 ×2; 84484; 85025 ×2; 85610 ×2; 81001; 71046; G0378 ×2; G0379; J7517